=== PATIENT | male | born 1965 | race Caucasian/White ===

== ENCOUNTER 2021-02-06 18:08 | Emergency (ER) | payer SELFPAY ==
[~2021-02-06] VITALS: Ht 162.6 cm; Wt 74.8 kg
[2021-02-06 18:19] VITALS: BP 166/84
--- NOTE | 2021-02-06 18:22 | NUR ---
55 YEAR OLD MALE COMPLAINS OF POSSIBLE INFECTION IN LEFT ARM. PT STATES THAT HE FELL ONTO ARM 2 YEARS AGO, AND LAST SATURDAY STARTED TO HAVE ISSUES WITH LEFT ELBOW. LEFT ELBOW WITH VISIBLE REDNESS AND INFLAMMATION, PT STATES PUS CAME OUT OF IT STARTING TODAY. PT AOX4, BREATHING EVEN AND UNLABORED, SKIN WARM AND DRY. BED IN LOWEST POSITION, LOCKED, BED RAIL UPX1. PMH - DENIES ALLERGIES - NKA
--- NOTE | 2021-02-06 18:23 | NUR ---
Patient ambulated to bed 11. RN evaluating the patient at bedside.
--- NOTE | 2021-02-06 18:25 | NUR ---
Dr. Veloz is evaluating the patient at bedside.
[2021-02-06] MEDS ORDERED: IBUP-2213 PO (18:48)
[2021-02-06] MEDS ORDERED: CEPH-588 PO (18:48)
--- NOTE | 2021-02-06 18:55 | NUR ---
Patient discharged with v/s stable. Written and verbal after care instructions bout skin abscess, cellulitis given and explained. Patient alert, oriented and verbalized understanding of instructions. Ambulatory with steady gait. All questions addressed prior to discharge. ID band removed. Patient advised to follow up with PMD. Rx of ibuprofen, keflex given. Patient educated on indication of medication including possible reaction and side effects. Opportunity to ask questions provided and answered.
[2021-02-06 18:57] VITALS: BP 166/84
[2021-02-06] MEDS ORDERED: LIDOCAINE MPF 1% 5 ML ONE (19:03)
[2021-02-06] MEDS ORDERED: LIDOCAINE MPF 1% 10 MG/ML VIAL INJ ONE (19:05)
--- NOTE | 2021-02-06 19:15 | NUR ---
PROCEDURE DONE BY DR NICKERSON ON PATIENTS LEFT HAND TO REMOVE ABSCESS, BANDAGED BY EMT PRIOR TO DISCHARGE
--- NOTE | 2021-02-06 19:15 | NUR ---
Fide almodovar in ED - 02/06/21 at 1920 by VISHNU PROCEDURE DONE BY DR NICKERSON ON PATIENTS LEFT HAND TO REMOVE ABSCESS, BANDAGED BY EMT PRIOR TO DISCHARGE
== END 2021-02-06 18:55 | disposition home or self-care (01) ==
LOC: MED 18:08
DX: L02.414 Cutaneous abscess of left upper limb (principal)
CPT/HCPCS: 99283; J2001